=== PATIENT | male | born 2000 | race Two or more races ===

== ENCOUNTER 2024-05-18 09:48 | Emergency (ER) | payer MEDICAID, SELFPAY ==
[2024-05-18 09:49] VITALS: BMI 23.6
[2024-05-18 10:11] VITALS: BP 149/75; PULSE 65; RESP 20; TEMP 37.1; O2SAT 99
--- NOTE | 2024-05-18 10:23 | XR_ITS ---
Examination: Thoracic spine 3 views TECHNIQUE: AP lateral coned lateral upper dorsal spine 3 views Exam date and time: May 18, 2019 0528 hours INDICATIONS: Upper back pain beginning 2 days ago. FINDINGS: Thoracic dextroscoliosis 8 degrees No thoracic fracture No thoracic disc narrowing Intact pedicles IMPRESSION: Thoracic dextroscoliosis 8 degrees
--- NOTE | 2024-05-18 10:23 | XR_ITS ---
Examination: PA chest single view TECHNIQUE: Upright PA chest single view Exam date and time: May 18, 2024 1034 hours INDICATIONS: Chest pain beginning 2 days ago. FINDINGS: Normal heart size Lungs are clear. The osseous structures are intact IMPRESSION: No active disease
--- NOTE | 2024-05-18 11:26 | EDNOTE_ITS ---
ED Back Injury Pain RME/HPI General Chief Complaint: Back Pain/Injury Stated Complaint: BACK PAIN X1WEEK Time Seen by Provider: 05/18/24 09:55 Arrival date/time: 05/18/24 09:48 23-year-old male presents the emergency department complains of back pain x 1 week patient reports no fever nausea or vomiting patient reports pain is worse with movement patient denies saddle anesthesia or loss of bowel or bladder Limitations: no limitations Related Data Previous Rx's ?Medication ?Instructions ?Recorded tramadol 50 mg tablet 50 mg PO Q6H PRN pain (scale score 04/12/21 7-10) #15 tabs cyclobenzaprine 10 mg tablet 10 mg PO TID PRN muscle spasm 10 05/18/24 days #30 tab-caps Allergies Allergy/AdvReac Type Severity Reaction Status Date / Time No Known Allergies Allergy Verified 05/18/24 09:52 Review of Systems Review of Systems Systems Reviewed: All systems reviewed, normal except as documented Constitutional Constitutional: Reports system reviewed and no additional complaints, except as documented, Denies fever(s) and Denies headache(s) Eyes Eyes: Reports system reviewed and no additional complaints, except as documented and Denies blurry vision ENT Ears, Nose, Mouth, and Throat: Reports system reviewed and no additional complaints, except as documented, Denies headache(s), Denies nasal congestion and Denies nasal discharge Cardiovascular Cardiovascular: Reports system reviewed and no additional complaints, except as documented, Denies chest pain and Denies dyspnea Respiratory Respiratory: Reports system reviewed and no additional complaints, except as documented, Denies chest congestion, Denies cough and Denies dyspnea Gastrointestinal Gastrointestinal: Reports system reviewed and no additional complaints, except as documented and Denies abdominal pain Musculoskeletal Musculoskeletal: Reports system reviewed and no additional complaints, except as documented and Reports back pain Integumentary/Breasts Skin/Breast: Reports system reviewed and no additional complaints, except as documented and Denies rash Neurologic Neurologic: Reports system reviewed and no additional complaints, except as documented, Reports as per HPI and Denies headache(s) Past Medical History Past Medical History NEUROLOGIC: Negative Cerebrovascular Accident, Alzheimer's Disease or Seizures CARDIAC: Negative Cardiac Disorders, Myocardial Infarction, Cardiac Arrhythmia, Atrial Fibrillation, Angina, Coronary Artery Disease, Atherosclerotic Heart Disease, Hypercholesterolemia, Aneurysm or Congestive Heart Failure RESPIRATORY: Positive Asthma; Negative Chronic Obstructive Pulmonary Disease (COPD) or Bronchitis GASTROINTESTINAL: Negative Gastrointestinal Disorders, Liver Cancer or Pancreatic Cancer GENITOURINARY: Negative Genitourinary Disorders or Renal Disease MUSCULOSKELETAL: Negative Musculoskeletal Disorders or Muscular Dystrophy ENT: Negative Blind or Deafness ENDOCRINE: Negative Diabetes Mellitus Type 1 or Diabetes Mellitus Type 2 HEMATOLOGIC: Negative Blood Disorders PSYCHO/SOCIAL: Negative Psychiatric Problems, Depression or Anxiety OTHER HISTORY: Negative Down Syndrome, Developmental Delay, Blood Transfusions, Blood Transfusion Reaction, Anesthesia Reactions, MRSA, Human Immunodeficiency Virus (HIV), Clostridium Difficile or Cancer Social History SMOKING STATUS: Never smoker ED Exam General Limitations: Present no limitations General appearance: Present alert and in no apparent distress Head Head exam: Present atraumatic, normocephalic and normal inspection Eye Eye exam: Present normal appearance, PERRL and EOMI; Absent conjunctival injection ENT ENT exam: Present normal exam, normal oropharynx and mucous membranes moist Neck Neck exam: Present normal inspection, full ROM and trachea midline Chest Chest inspection: Present normal inspection and symmetric chest wall rise Respiratory Respiratory exam: Present normal lung sounds bilaterally Cardiovascular Cardiovascular exam: Present regular rate, normal rhythm and normal heart sounds Abdominal Exam Abdominal exam: Present soft and normal bowel sounds; Absent distention or tenderness Extremities Exam Extremities exam: Present normal inspection and full ROM Back Exam Back exam: Present normal inspection, full ROM, tenderness, muscle spasm and paraspinal tenderness; Absent CVA tenderness (R) or CVA tenderness (L) Neurological Exam Neurological exam: Present alert, oriented X3 and CN II-XII intact Psychiatric Psychiatric exam: Present normal affect and normal mood Skin Skin exam: Present warm, dry, intact and normal color Course Quality Measures none Orders Category Date Time Status XR chest 1V Stat Exams 05/18/24 10:23 Completed XR thoracic spine 3V Stat Exams 05/18/24 10:23 Completed Diazepam [Valium] Med 05/18/24 10:23 Discontinued 5 mg PO X1 ONE Vital Signs Vital signs: Vital Signs Temperature 98.8 F 05/18/24 10:11 Pulse Rate 65 05/18/24 10:11 Respiratory Rate 20 05/18/24 10:11 Blood Pressure 149/75 H 05/18/24 10:11 Pulse Oximetry (%) 99 05/18/24 10:11 Oxygen Delivery Method Room Air 05/18/24 10:11 O2 saturation 99% room air within normal limits Back Pain / Injury MDM Narrative MDM Narrative:: 23-year-old male presents the emergency department complains of back pain x 1 week patient reports no fever nausea or vomiting patient reports pain is worse with movement patient denies saddle anesthesia or loss of bowel or bladder On exam patient well-appearing patient does not appear toxic patient reports mid back pain worse with movement X-ray of the back obtained no acute emergent findings noted patient does have mild scoliosis Patient medicated for pain Patient discharged home in no distress to follow-up with primary care doctor in the next 24 to 48 hours and for any worsening symptoms to return to the ER immediately Patient data External records reviewed:: [facility] previous records Clinical information provided by:: patient Social determinants that could affect healthcare access:: none Patient has the following chronic illnesses:: None How is presenting disease/condition affected by chronic disease/condition?: no chronic disease Evaluation data The following diagnostics were reviewed and interpreted by me:: radiology exam(s) Lab and/or radiology exams considered but not ordered:: Radiology obtained Interpretation Summary: Reviewed by me Medications / Prescriptions Medications or Prescriptions considered but not ordered:: Given Medication administrations:: Medication Administration History Discontinued Medications Diazepam (Diazepam 5 Mg Tablet) 5 mg PO X1 ONE Stop: 05/18/24 10:24 Last Admin: 05/18/24 11:44 Dose: 5 mg Documented By: MP Given Consultations Consultation(s) initiated? (list below): No Diagnosis Differential diagnosis back pain/injury: lumbar radiculopathy, sciatica, strain of lumbar region and discitis Most likely diagnosis given after review of the tests above:: Back pain Admission Indicated Admission indicated?: not indicated Admission Request Was there a request for admission?: No Disposition Plan Disposition Plan: Discharge Discharge Attestation Discharge Attestation: The patient and all family members were given an opportunity to ask questions and understood the discharge instructions. Discharge instructions specifically effects, indications for sooner follow up or return to the emergency department, and the expected course of current diagnosis. Patient condition: Stable Discharge Plan Plan Patient Disposition: HOME (Self Care) Disposition Comment: Stable Prescriptions/Referrals Prescriptions/Med Rec: New cyclobenzaprine 10 mg tablet 10 mg PO TID PRN (Reason: muscle spasm) 10 Days Qty: 30 0RF No Action tramadol 50 mg tablet 50 mg PO Q6H PRN (Reason: pain (scale score 7-10)) Qty: 15 0RF Referrals: No Primary/Family,Physician [Primary Care Provider] - 05/19/24 Problem List Clinical Impression: Back pain, Scoliosis Patient/Caregiver Discharge Instructions Education Materials: Back Safety: Turning Additional Instructions: Please follow up with your primary care doctor in the next 24-48hrs for any worsening symptoms return here immediately Print Language: Kiswahili Stand Alone Forms: Elisa Award Info., Work/School Release, Patient Portal Info Letter PA/CATERING SERVER Supervising Physician PA/CATERING SERVER Supervising Physician: Dr Melissa
[2024-05-18] MEDS: DIAZEPAM 5 MG TABLET PO (11:44)
== END 2024-05-18 11:58 | disposition home or self-care (01) ==
PROVIDERS: Emergency Provider Emergency Medicine
DX: M41.9 Scoliosis, unspecified (principal); R07.9 Chest pain, unspecified
CPT/HCPCS: 71045; 72072; 99283; A9270